=== PATIENT | male | born 1965 | race African-American/Black ===

== ENCOUNTER 2016-10-23 10:02 | Emergency (ER) | payer BC, OTHER ==
[~2016-10-23] VITALS: Ht 170.2 cm; Wt 77.5 kg
[~2016-10-23 10:02] MED LIST: AMLO5TAB4 PO; ASPI-805 PO; HYD25 PO
[2016-10-23 10:07] VITALS: Ht 170.2 cm; Wt 77.5 kg
[2016-10-23] MEDS ORDERED: ASPIRIN 81 MG TAB PO STA (10:25)
[2016-10-23] MEDS ORDERED: NITROGLYCERIN 2% 1 GM OINT PKT TD STA (10:25)
[2016-10-23 10:42] LABS: ADD SCAN DIFF NO
[2016-10-23 10:44] LABS: BASOPHILS % 0.4 % (0.0-2.0); EOSINOPHILS # 0.1 10^3/ul (0.0-0.5); EOSINOPHILS % 0.9 % (0.0-7.0); HEMATOCRIT 45.4 % (42.0-52.0); LYMPHOCYTES # 2.8 10^3/ul (0.8-2.9); LYMPHOCYTES % 36.4 % (15.0-51.0); MEAN CORPUSCULAR HEMOGLOBIN 32.4 pg (29.0-33.0); MEAN CORPUSCULAR HGB CONC 35.2 g/dl (32.0-37.0); MEAN CORPUSCULAR VOLUME 91.9 fl (82.0-101.0); MONOCYTE # 0.5 10^3/ul (0.3-0.9); MONOCYTES % 6.8 % (0.0-11.0); NEUTROPHIL # 4.3 10^3/ul (1.6-7.5); NEUTROPHILS % 55.4 % (39.0-77.0); PLATELET COUNT 240 10^3/UL (140-415); RED BLOOD COUNT 4.94 10^6/ul (4.70-6.10); RED CELL DISTRIBUTION WIDTH 12.7 % (11.5-14.5); WHITE BLOOD COUNT 7.8 10^3/ul (4.8-10.8)
[2016-10-23 10:59] LABS: INR 0.95; PROTIME 12.7 Sec (12.2-14.2)
[2016-10-23 11:00] LABS: PARTIAL THROMBOPLASTIN TIME 29.3 Sec (25.0-35.0)
--- NOTE | 2016-10-23 11:01 | RADRPT ---
PROCEDURE: XR Chest. CLINICAL INDICATION: Chest pain. TECHNIQUE: Single frontal view of the chest was obtained. COMPARISON: Chest x-ray through . FINDINGS: The soft tissues are normal. Monitoring electrodes are draped across the chest.. The bony elements are normal. The heart, cardiomediastinal silhouette and hilar structures are normal. The pulmonary vasculature is normal. There is a left-sided aorta. The lungs are clear. The costophrenic angles are normal. IMPRESSION: 1. Stable chest x-ray with no evidence of active cardiopulmonary disease. RPTAT:AAJJ Physician Onofre Date Time Electronically viewed and signed by Physician Onofre on 10/23/2016 11:01 RAULITO/
[2016-10-23 11:07] LABS: ANION GAP 17 (8-16); BLOOD UREA NITROGEN 16 mg/dl (7-20); CALCIUM 10.4 mg/dl (8.4-10.2); CARBON DIOXIDE 25 mmol/L (21-31); CHLORIDE 104 mmol/L (97-110); CREATININE 0.98 mg/dl (0.61-1.24); GLUCOSE 229 mg/dl (70-220); SODIUM 142 mmol/L (135-144)
[2016-10-23 11:21] LABS: TROPONIN-I < 0.012 ng/ml (0.00-0.12)
--- NOTE | 2016-10-23 11:29 | ERA ---
ER Documentation Chief Complaint Date/Time DATE: 10/23/16 TIME: 11:27 Chief Complaint CP SINCE SATURDAY HPI This is a very pleasant 51-year-old male who presents with chest pain. He describes the chest pain started on Saturday and was dull and achy to his left arm now central to the chest that is constant, non-reproducible and not worse with rotational movement. He describes multiple risk factors but denies family history of cardiac disease. No prior stress testing or cardiac evaluation. No fevers or chills or mid back pain. He denies any pleuritic pain or calf swelling or travel. Mild pain 3 out of 10 currently. ROS All systems reviewed and are negative except as per history of present illness. Medications Home Meds Active Scripts Aspirin* (Gray Aspirin*) 81 Mg Tab.chew, 81 MG PO DAILY for 90 Days, TAB.CHEW Prov:ESTEPHANIA SIMS MD 07/25/14 Amlodipine Besylate* (Norvasc*) 5 Mg Tablet, 5 MG PO DAILY for 30 Days, TAB Prov:ESTEPHANIA SIMS MD 07/25/14 Hydrochlorothiazide* (Hydrochlorothiazide*) 25 Mg Tab, 25 MG PO DAILY for 30 Days, TAB Prov:ESTEPHANIA SIMS MD 07/25/14 Reported Medications Atorvastatin* (Atorvastatin*) 40 Mg Tablet, 40 MG PO QHS, #30 TAB 10/23/16 Glipizide* (Glipizide*) 5 Mg Tablet, 5 MG PO DAILY, TAB 10/23/16 Metformin* (Glucophage*) 500 Mg Tab, 500 MG PO BID, #30 TAB 10/23/16 Allergies Allergies: Coded Allergies: iodine (Unverified Adverse Reaction, Severe, TONGUE SWELLING, 07/25/14) SINCE PERSON IS ALLERGIC TO SHELLFISH. shellfish derived (Unverified Adverse Reaction, Severe, TONGUE SWELLING, ) UNSURE WHAT TYPE OF SEAFOOD PMhx/Soc History of Surgery: Yes (neck surgery cervical lamenectomy c4-c5) Anesthesia Reaction: No Hx Neurological Disorder: No Hx Respiratory Disorders: No Hx Cardiac Disorders: No Hx Psychiatric Problems: No Hx Miscellaneous Medical Probl: Yes (HTN, diabetes) Hx Alcohol Use: No Hx Substance Use: No Hx Tobacco Use: Yes (cigars) Smoking Status: Former smoker FmHx Family History: No coronary disease, No diabetes Physical Exam Vitals Vital Signs Date Time Temp Pulse Resp B/P Pulse Ox O2 Delivery O2 Flow Rate FiO2 10/23/16 10:07 97.8 91 20 141/88 99 Physical Exam General: Well developed, well nourished, no acute distress Head: Normocephalic, atraumatic. Eyes: Pupils equally reactive, EOM intact ENT: Moist mucous membranes Neck: Supple, no lymphadenopathy Respiratory: Lungs clear bilaterally, no distress Cardiovascular: RRR, no murmurs, rubs, or gallops Abdominal: Soft, non-tender, non-distended, no peritoneal signs : Deferred MSK: No edema, no unilateral swelling, 5/5 strength, no pulse deficits Neurologic: Alert and oriented, moving all extremities, normal speech, no focal weakness, no cerebellar signs Skin: No rash Psych: Normal mood Result Diagram: 10/23/16 1020 10/23/16 1020 Results 24 hrs Laboratory Tests Test 10/23/16 10:20 White Blood Count 7.810^3/ul Red Blood Count 4.9410^6/ul Hemoglobin 16.0g/dl Hematocrit 45.4% Mean Corpuscular Volume 91.9fl Mean Corpuscular Hemoglobin 32.4pg Mean Corpuscular Hemoglobin Concent 35.2g/dl Red Cell Distribution Width 12.7% Platelet Count 59818^3/UL Mean Platelet Volume 9.0fl Neutrophils % 55.4% Lymphocytes % 36.4% Monocytes % 6.8% Eosinophils % 0.9% Basophils % 0.4% Nucleated Red Blood Cells % 0.0/100WBC Neutrophils # 4.310^3/ul Lymphocytes # 2.810^3/ul Monocytes # 0.510^3/ul Eosinophils # 0.110^3/ul Basophils # 0.010^3/ul Nucleated Red Blood Cells # 0.010^3/ul Prothrombin Time 12.7Sec Prothrombin Time Ratio 1.0 INR International Normalized Ratio 0.95 Activated Partial Thromboplast Time 29.3Sec Sodium Level 142mmol/L Potassium Level 4.0mmol/L Chloride Level 104mmol/L Carbon Dioxide Level 25mmol/L Anion Gap 17 Blood Urea Nitrogen 16mg/dl Creatinine 0.98mg/dl Glucose Level 229mg/dl Calcium Level 10.4mg/dl Troponin I < 0.012ng/ml Current Medications Medications (Trade) Dose Ordered Sig/Salbador Route PRN Reason Start Time Stop Time Status Last Admin Dose Admin Aspirin (Aspirin) 243 mg ONCE STAT PO 10/23/16 10:25 10/23/16 10:26 DC 10/23/16 10:41 Nitroglycerin (Nitroglycerin 2% Oint) 1 inch ONCE STAT TD 10/23/16 10:25 10/23/16 10:26 DC 10/23/16 10:42 Ondansetron HCl (Zofran Inj) 4 mg ER BRIDGE PRN IV NAUSEA AND/OR VOMITING 10/23/16 13:30 10/24/16 13:29 Acetaminophen (Tylenol Tab) 650 mg ER BRIDGE PRN PO MILD PAIN/FEVER 10/23/16 13:30 10/24/16 13:29 Procedures/MDM EKG, MONITORS, & DIAGNOSTIC IMAGING: EKG: I reviewed and interpreted a 12-lead EKG. Rhythm: Normal sinus rhythm Ectopy: None Intervals: No abnormalities ST segments: No elevations or depressions T waves: No contiguous inversions Repeat EKG: EKG: I reviewed and interpreted a 12-lead EKG. Rhythm: Normal sinus rhythm Ectopy: None Intervals: No abnormalities ST segments: No elevations or depressions T waves: No contiguous inversions Chest x-ray: I reviewed and interpreted a 1 view of the chest Mediastinum: No enlargement Cardiac silhouette: No cardiomegaly Airspace: Clear lung matute bilaterally without evidence of pneumothorax Bones: No evidence of fracture LAB INTERPRETATION: Negative troponin MEDICAL DECISION MAKING: The patient's history, physical exam and clinical presentation is concerning for possible cardiogenic etiology and acute coronary syndrome. Based on the patient's clinical exam and history and risk factors, I have a much lower clinical concern for pulmonary embolism, acute aortic dissection, pneumothorax, pneumonia, cardiac tamponade HEART Score: 4 MACE Rate: 16.6% Shared Decision Making: We had a conversation regarding risk stratification, MACE rate, and the risks, benefits, alternatives of disposition planning options. Disposition planning: Given no prior cardiac stress testing inpatient hospitalization is recommended patient agrees. ER COURSE: Aspirin nitroglycerin provided. Improved chest pain. Inpatient hospitalization appropriate. I kept the patient and/or family informed of laboratory and diagnostic imaging results throughout the emergency room course. DISPOSITION PLAN: Telemetry admission for management of chest pain to rule out acute coronary syndrome. CONSULTATION: Accepting care team and consultations: I discussed the current laboratory data, diagnostic imaging and emergency care provided. Admitting team: Dr. Tracy GUTIERREZ Admitting team indication: Insurance directed Departure Diagnosis: Primary Impression: Chest pain Qualified Code: R07.9 - Chest pain, unspecified type Additional Impression: Hyperglycemia Condition: Stable GHISLAINE MEJIA MD Oct 23, 2016 11:29
[2016-10-23] MEDS ORDERED: METF500T4 PO (13:00)
[2016-10-23] MEDS ORDERED: GLIP5TAB13 PO (13:00)
[2016-10-23] MEDS ORDERED: ATOR40TA68 PO (13:01)
[2016-10-23] MEDS ORDERED: ONDANSETRON 4 MG INJ IV PRN ×2 (13:30→15:00)
[2016-10-23] MEDS ORDERED: ACETAMINOPHEN 325 MG TAB PO PRN ×2 (13:30→15:00)
[2016-10-23] MEDS ORDERED: MAGNESIUM HYDROXIDE 30ML CUP PO PRN (15:00)
[2016-10-23] MEDS ORDERED: NITROGLYCERIN (SL) 0.4 MG TAB SL PRN (15:00)
[2016-10-23] MEDS ORDERED: DOCUSATE SODIUM 100 MG CAP PO PRN (15:00)
[2016-10-23] MEDS ORDERED: BISACODYL 10 MG SUPP PR PRN (15:00)
[2016-10-23] MEDS ORDERED: morphine 2 MG INJ IV PRN (15:00)
[2016-10-23] MEDS ORDERED: NACL 0.9% 3 ML SYG IV SCH (15:00)
[2016-10-23] MEDS ORDERED: FAMOTIDINE 20 MG TAB PO SCH (16:00)
[2016-10-23] MEDS ORDERED: ENOXAPARIN 40 MG/0.4 ML SYG SC SCH (16:00)
[2016-10-23] MEDS ORDERED: HYDROCHLOROTHIAZIDE 25 MG TAB PO SCH (16:00)
[2016-10-23] MEDS ORDERED: METOPROLOL 25 MG TAB PO SCH (16:00)
[2016-10-23 16:32] LABS: CREATINE KINASE 193 IU/L (23-200)
--- NOTE | 2016-10-23 16:40 | CONS ---
Date/Time of Note Date/Time of Note DATE: 10/23/16 TIME: 16:32 Assessment/Plan Assessment/Plan Additional Assessment/Plan Left arm and chest pain Preserved ejection fraction Left ventricular hypertrophy Hypertension Diabetes Dyslipidemia -Patient with symptoms of left arm pain initially and then left-sided chest pain began the next day. Symptoms have been chronic and change with arm and hand movements. Initial cardiac enzymes are negative. Symptoms have since resolved. ECG without any significant acute ischemic abnormalities. Bedside echocardiogram performed demonstrates preserved ejection fraction with normal wall motion. Patient is requesting to be discharged home from the emergency room. Given his risk factors, will obtain second set of cardiac enzymes. Continue aspirin therapy as well as antihypertensives. If cardiac enzymes remain negative patient remains asymptomatic, okay for discharge at the current time with outpatient follow-up. Consultation Date/Type/Reason Admit Date/Time Type of Consultation: cv Reason for Consultation Left arm and chest pain Hx of Present Illness This is a 51-year-old male with past medical history of hypertension, dyslipidemia, prediabetes presents with left arm pain and chest pain. Patient was moving boxes last Saturday. While doing this, he felt aching like sensation in his left arm. No associated shortness of breath or chest discomfort with activity. Next morning, patient developed left chest discomfort and continued left arm pain. Pain was somewhat positional and improved with opening and closing his left hand. He denied any shortness of breath, dizziness or lightheadedness. Symptoms continued over the past few days and for this reason he came to the emergency room for evaluation. Discomfort has been chronic and not worse with activity or improved with rest. Opening and closing his left arm does change the consistency of the symptoms and its characteristics. Since presenting to the emergency room, discomfort has resolved. He otherwise denies exertional chest pain or shortness of breath prior to this. Denies any dizziness or lightheadedness at rest or with activity. 12 point review of systems was performed with all pertinent positives and negatives mentioned above and all else is negative Past Medical History Medical History: diabetes, high cholesterol, hypertension Past Surgical History Cervical laminectomy Family History Significant Family History: no pertinent family hx Social History Alcohol Use: rarely Smoking Status: Light tobacco smoker Drug Use: none Exam/Review of Systems Vital Signs Vitals Vital Signs Date Time Temp Pulse Resp B/P Pulse Ox O2 Delivery O2 Flow Rate FiO2 10/23/16 14:48 74 20 108/77 100 Room Air 10/23/16 10:07 97.8 Exam No apparent distress Constitutional: alert, oriented Head: normocephalic Neck: supple Respiratory: clear to auscultation, normal air movement Cardiovascular: other (S1-S2 heard), regular rate and rhythm Gastrointestinal: bowel sounds, non-tender, other (No guarding), soft Extremities: edema (No edema) Results Result Diagram: 10/23/16 1020 10/23/16 1020 Results 24 hrs Laboratory Tests Test 10/23/16 10:20 White Blood Count 7.8 Red Blood Count 4.94 Hemoglobin 16.0 Hematocrit 45.4 Mean Corpuscular Volume 91.9 Mean Corpuscular Hemoglobin 32.4 Mean Corpuscular Hemoglobin Concent 35.2 Red Cell Distribution Width 12.7 Platelet Count 240 Mean Platelet Volume 9.0 # Neutrophils % 55.4 Lymphocytes % 36.4 Monocytes % 6.8 Eosinophils % 0.9 Basophils % 0.4 Nucleated Red Blood Cells % 0.0 Neutrophils # 4.3 Lymphocytes # 2.8 Monocytes # 0.5 Eosinophils # 0.1 Basophils # 0.0 Nucleated Red Blood Cells # 0.0 Prothrombin Time 12.7 Prothrombin Time Ratio 1.0 INR International Normalized Ratio 0.95 Activated Partial Thromboplast Time 29.3 Sodium Level 142 Potassium Level 4.0 Chloride Level 104 Carbon Dioxide Level 25 Anion Gap 17 H Blood Urea Nitrogen 16 Creatinine 0.98 Glucose Level 229 H Calcium Level 10.4 H Troponin I < 0.012 Medications Medications Current Medications Atorvastatin Calcium (Lipitor) 40 mg QHS PO ; Start 10/23/16 at 21:00 Hydrochlorothiazide (Hydrochlorothiazide) 25 mg DAILY PO ; Start 10/23/16 at 16: 00 Metoprolol Tartrate (Lopressor) 25 mg BID PO ; Start 10/23/16 at 16:00 Ondansetron HCl (Zofran Inj) 4 mg Q6H PRN IV NAUSEA AND/OR VOMITING; Start at 15:00 Aspirin (Aspirin) 81 mg DAILY PO ; Start 10/24/16 at 09:00 Nitroglycerin (Nitroglycerin (Sl Tab) 0.4 Mg) 1 tab Q5M PRN SL CHEST PAIN; Start 10/23/16 at 15:00 Acetaminophen (Tylenol Tab) 650 mg Q6H PRN PO PAIN LEVEL 1-3 OR FEVER; Start at 15:00 Morphine Sulfate (morphine) 2 mg Q4H PRN IV PAIN LEVEL 7-10; Start 10/23/16 at 15:00 Docusate Sodium (Colace) 100 mg Q12H PRN PO CONSTIPATION; Start 10/23/16 at 15: 00 Magnesium Hydroxide (Milk Of Mag) 30 ml DAILY PRN PO CONSTIPATION; Start at 15:00 Bisacodyl (Dulcolax Supp) 10 mg DAILY PRN [place] CONSTIPATION; Start 10/23/16 at 15 :00 Famotidine (Pepcid) 20 mg Q12 PO ; Start 10/23/16 at 16:00 Enoxaparin Sodium (Lovenox) 40 mg Q24H SC ; Start 10/23/16 at 16:00 Procedures Procedures ECG with sinus rhythm, borderline anterior Q waves, nonspecific ST-T wave abnormalities Pancho Batista DO Oct 23, 2016 16:40
--- NOTE | 2016-10-23 16:47 | RADRPT ---
Echocardiogram Report Patient Name: BETTE SIDDIQUI Gender: Male Date: 1965 Study Date: 23-Oct-2016 Magician/Illusionist: Fidencio [facility] Location: [facility] Ref. Physician: CHERY GIBBS Quality: Adequate Procedures: Transthoracic echocardiogram with complete 2D, M-Mode, and doppler examination. Indications: Chest Pain. 2D/M Mode Doppler Measurement Value Normal Ranges Measurement Value Normal Ranges LVIDd 2D 4.2 3.5 - 5.6 cm AV Peak Pawan 1.3 m/sec LVIDs 2D 2.9 2.1 - 4.1 cm AV Peak PG 7.2 mmHg LVPWd 2D 1.3 0.6 - 1.1 cm LVOT Peak Pawan 1.2 m/sec IVSd 2D 1.2 0.6 - 1.1 cm LVOT Peak PG 6.0 mmHg AoR Diam 2D 2.7 2.0 - 3.7 cm MV E Peak Pawan 0.6 m/sec EDV 2D 79.8 cm3 MV A Peak Pawan 0.6 m/sec ESV 2D 25.6 cm3 MV E/A 1.0 LA Dimen 2D 2.8 2.3 - 4.0 cm MV Decel Time 246 msec MV Decel Desoto 3 MV E/A 1.0 Findings Left Ventricle: Normal left ventricular systolic function. Normal left ventricular cavity size. Mild concentric left ventricular hypertrophy. Ejection fraction is visually estimated at 65 %. Abnormal Diastolic Function. Right Ventricle: Normal right ventricular size. Normal right ventricular systolic function. Left Atrium: The left atrium is normal in size. Right Atrium: The right atrium is normal in size. Mitral Valve: Normal appearance of the mitral valve. Trace mitral regurgitation. Aortic Valve: Normal appearance of the aortic valve. No significant aortic stenosis or insufficiency. Tricuspid Valve: Normal appearance and function of the tricuspid valve with trace physiologic regurgitation. Pericardium: Normal pericardium with no significant pericardial effusion. Aorta: Normal aortic root. IVC: Normal size and normal respiratory collapse consistent with normal right atrial pressure. Conclusions Normal left ventricular systolic function. Normal left ventricular cavity size. Mild concentric left ventricular hypertrophy. Ejection fraction is visually estimated at 65 %. Abnormal Diastolic Function. Normal right ventricular size. Normal right ventricular systolic function. The left atrium is normal in size. The right atrium is normal in size. No significant valvular stenosis or regurgitation seen. Normal pericardium with no significant pericardial effusion. Electronically Signed By: Pancho Batista 23-Oct-2016 16:46:28 -0700 Patient Name: BETTE SIDDIQUI Study Date: [id number]
[2016-10-23 16:48] LABS: CK-MB 0.91 ng/ml (0.0-2.4); TROPONIN-I < 0.012 ng/ml (0.00-0.12)
[2016-10-23 17:13] VITALS: BP 127/87; PULSE 65; RESP 16
--- NOTE | 2016-10-23 17:34 | HP ---
DATE OF ADMISSION: 10/23/2016 CHIEF COMPLAINT: Chest pain. HISTORY OF PRESENT ILLNESS: This is a 51-year-old [place] male with history of hypertension, diabe josafat mellitus, and hyperlipidemia who presented to the emergency department with complaint of chest p ain. The patient reports that he was moving some boxes approximately 4 to 5 days ago. He started h aving pain in his left arm which subsequently seems to have radiated to his left chest area. The pa in is not reproducible. It has been ongoing, and this is despite using pain medication and even top ical BenGay. He was at work yesterday. He just did not feel well. Subsequently, overnight, he was still having the discomfort ongoing despite the BenGay he was using; therefore, he came to the [facility] department this morning. In the emergency department, by the time of arrival, he was given a dose of aspirin. Nitro paste was placed. According to the patient, his pain resolved prior to the nitro paste placed. He denies any nausea, vomiting, diaphoresis, shortness of breath, dizziness wit h the episodes of chest discomfort and on discomfort. No radiation to the neck. He denies having a ny previous similar episodes. He was seen here at [facility] in 2014 for angioedema, which was thought to be secondary to ERUM inhibitors. Since then, he has been doing well. ALLERGIES: TO IODINE AND ALSO TO ERUM INHIBITORS. PAST MEDICAL HISTORY 1. Hypertension. 2. Hyperlipidemia. 3. Diabetes mellitus. PAST SURGICAL HISTORY: Status post cervical spine laminectomy 15 years ago. SOCIAL HISTORY: The patient is a cigar smoker occasionally and also drinks Cognac occasionally. No history of IV drug use. REVIEW OF SYSTEMS: As per HPI. PHYSICAL EXAMINATION: VITAL SIGNS: Temperature is 97.8, heart rate of 74, respiratory rate of 20, blood pressure 108/77. The patient is satting 100% on room air. GENERAL: He is alert and oriented x4. He is in no acute distress currently. HEENT: Pupils are equally round and reactive to light. Extraocular muscles are intact. Anicteric sclerae. No JVD, no thyromegaly noted. HEART: Regular rate and rhythm, no murmur, rubs, or gallops. LUNGS: Clear to auscultation bilaterally. ABDOMEN: Soft, nontender, nondistended. Bowel sounds are present. EXTREMITIES: No edema, clubbing, or cyanosis. NEUROLOGIC: Grossly intact. LABORATORY DATA: White blood cell count is 7.8, hemoglobin 16.0, hematocrit 45.4, platelet count of 240. Chemistry with a sodium of 142, potassium 4.0, chloride 104, bicarbonate 25, BUN 16, creatini ne 0.98, glucose of 229, calcium of 10.4. Troponin is less than 0.012. INR is 0.95, PT 12.7, PTT 2 9.3. EKG shows normal sinus rhythm, no acute ST or T wave abnormalities. There is left atrial enlargemen t possible and old anterior infarct, based on EKG. The patient does not remember any previous event s. Chest x-ray is stable. No evidence of cardiopulmonary disease. ASSESSMENT AND PLAN: This is a 51-year-old male with 1. Chest pain that seems to be more atypical; however, he does have risk factors. I did discuss th e case with Dr. Batista from cardiology. We are waiting for the second set of cardiac enzymes. He h as an echocardiogram that will be also done. Based on those two data, it will be evaluated if the p atient needs to stay for further evaluation versus discharge home with outpatient cardiology followu p. 2. Diabetes mellitus. Continue home medication. 3. Hypertension. I did put him on some beta blockers, but he may continue his home medication at d ischarge depending on the results of his second troponin and echocardiogram. 4. Hyperlipidemia. Continue statin therapy. DISPOSITION: Again, follow up on second set of cardiac enzymes and echocardiogram for further decis ion regarding discharge from the emergency department versus admission for further workup. Dr. aBiley olguin from cardiology will also evaluate the patient. Dictated By: CARLOS MELISSA/ELZA Conf#: [id number] DID#: [id number]
[2016-10-23] MEDS ORDERED: ATORVASTATIN 40 MG TAB PO SCH (21:00)
[2016-10-24] MEDS ORDERED: ASPIRIN 81 MG TAB PO SCH ×2 (09:00)
== END 2016-10-23 17:32 | disposition home or self-care (01) ==
LOC: E/R 10:02
DX: R07.9 Chest pain, unspecified (principal); E11.65 Type 2 diabetes mellitus with hyperglycemia; I10 Essential (primary) hypertension; Z79.84 Long term (current) use of oral hypoglycemic drugs; Z87.891 Personal history of nicotine dependence
CPT/HCPCS: 36415; 71010; 80048; 82550; 82553; 84484; 85025; 85610; 85730; 93005; 93306